=== PATIENT | male | born 1960 | race Caucasian/White ===

== ENCOUNTER 2016-11-18 18:03 | Emergency (ER) | payer BC ==
[~2016-11-18] VITALS: Ht 175.3 cm; Wt 63.5 kg
[2016-11-18 20:00] VITALS: BP 190/90
--- NOTE | 2016-11-18 20:14 | Emergency Room Report ---
History of Present Illness General Chief Complaint: Head Injury Source: Patient Present Illness HPI 56 YO male Pt. presents to the ED c/o bruising to the left upper eyelid x 2 days s/p accidentally walking into a door. Denies Loss of consciousness. Denies nausea, vomiting, headache, dizziness, tenderness. Patient states that the bruising is slowly migrating over the course of 2 days. Patient denies any blood thinning medications. Denies weakness. He has a history of LASIK surgery and when he saw his private mortgage banker safe earlier today private mortgage banker safe recommended the patient go to the ED for evaluation. Denies numbness tingling or loss of sensation or gross motor movements of the extremities, incontinence of bowel or bladder. Denies CP, Palpitations, LOC, AMS , dizziness, Changes in Vision, Sensation, paresthesias, or a sudden severe headache. Pt states his only symptoms is the bruising, and that he is only here because his eye doctor told him he should be evaluated. Patient History Past Medical History: see triage record Past Surgical History: none Pertinent Family History: none Immunizations: UTD Reviewed Nursing Documentation: PMH: Agreed, PSxH: Agreed Nursing Documentation-PMH Past Medical History: No Stated History Review of Systems All Other Systems: negative except mentioned in HPI Physical Exam Vital Signs Date Time Temp Pulse Resp B/P Pulse Ox O2 Delivery O2 Flow Rate FiO2 11/18/16 19:01 97.5 55 18 201/92 100 Room Air Sp02 EP Interpretation: reviewed, normal General Appearance: no apparent distress, alert, GCS 15, non-toxic Head: normocephalic, other - left upper eyelid bruising noted, no TTP Eyes: bilateral eye EOMI, bilateral eye PERRL, bilateral eye normal inspection ENT: hearing grossly normal, normal pharynx, no angioedema, normal voice, TMs + canals normal, uvula midline, moist mucus membranes, other - no evidence of epistaxis, septal hematoma, or hemotympanum Neck: full range of motion, no meningismus, no bony tend, supple/symm/no masses Respiratory: chest non-tender, lungs clear, normal breath sounds, speaking full sentences Cardiovascular #1: regular rate, rhythm, no edema Musculoskeletal: back normal, gait/station normal, normal range of motion, non- tender, no calf tenderness Neurologic: alert, oriented x3, responsive, motor strength/tone normal, sensory intact, cerebellar normal, normal gait, speech normal, no pronator, other - negative herr's Psychiatric: judgement/insight normal, memory normal, mood/affect normal, no suicidal/homicidal ideation Skin: normal color, no rash, warm/dry, well hydrated, hematoma - left upper eyelid bruising noted, no TTP Lymphatic: no adenopathy Medical Decision Making PA Attestation Dr. Holcomb is my supervising Physician whom patient management has been discussed with. Diagnostic Impression: Primary Impression: Facial contusion Qualified Codes: S00.83XA - Contusion of other part of head, initial encounter ER Course Pt. presents to the ED c/o bruising to the left upper eyelid x 2 days s/p accidentally walking into a door. - Denies Loss of consciousness, denies RICO, Tenderness, visual changes, dizziness Ddx considered but are not limited to Fracture, dislocation, contusion, concussion Sprain/Strain/Spasm, ICH, subdural hematoma, nasal fx. Vital signs: pt. is afebrile, elevated BP in ED. H&PE are most consistent with contusion, no evidence of focal neurological deficit, no loss of consciousness. no evidence of csf leak, no carvalho sign. no bony TTP. ORDERS: none required at this time. PE and HPI do not indicate CT at this time. ED INTERVENTIONS: -D/w Pt. my reasoning for not doing Head CT, also discussed red flag symptoms to keep an eye out for that would indicate prompt return to the ED. - PT. verbalizes his understanding and agreement with proposed treatment plan. DISCHARGE: At this time pt. is stable for d/c to home. Will provide printed patient care instructions, and any necessary prescriptions. Care plan and follow up instructions have been discussed with the patient prior to discharge. Last Vital Signs Date Time Temp Pulse Resp B/P Pulse Ox O2 Delivery O2 Flow Rate FiO2 11/18/16 20:00 98.0 81 18 190/90 100 Room Air Disposition: HOME, SELF-CARE Condition: Stable Patient Instructions: Facial or Scalp Contusion Additional Instructions: Take previously prescribed medications as directed. Follow up with PCP in 3-5 days * remember to mention elevated BP reading while in the ED. * Return sooner to ED if new symptoms occur, or current symptoms become worse. Elsie Marshall Nov 18, 2016 20:13
[2016-11-18 20:31] VITALS: BP 190/90
== END 2016-11-18 20:31 | disposition home or self-care (01) ==
LOC: EMR 19:30
DX: S00.83XA Contusion of other part of head, initial encounter (principal); W22.09XA Striking against other stationary object, initial encounter; Y92.9 Unspecified place or not applicable; Y99.8 Other external cause status
CPT/HCPCS: 99282